=== PATIENT | male | born 1990 | race African-American/Black ===

== ENCOUNTER 2017-08-13 03:06 | Emergency (ER) | payer SELFPAY ==
[~2017-08-13] VITALS: Ht 190.5 cm; Wt 77.0 kg
[2017-08-13 03:10] VITALS: BP 134/77; PULSE 77; RESP 18; TEMP 98; O2SAT 97
[2017-08-13] MEDS ORDERED: AMOX500T PO (04:06)
[2017-08-13] MEDS ORDERED: DICL75TA PO (04:06)
--- NOTE | 2017-08-13 04:12 | PD ---
HPI Chief Complaint: Headache Time Seen by Provider: 03:58 Travel History International Travel<30 days: No Contact w/Intl Traveler<30days: No Traveled to known affect area: No History of Present Illness HPI 26-year-old black male presents [facility] with complaints of left-sided dental pain with headache. He states that he has taken [id number] ibuprofen and Aleve without relief. Pain is been moderate but can be severe at times. He denies any fever chills. He states the pain radiates from his left jaw up into his left ear and head. He denies any nausea vomiting. No abdominal pain or diarrhea. No dysuria or frequency. No alleviating factors. Exacerbated by the wind blowing on his mouth. PFSH Past Medical History Medical History: Denies Significant Hx Diminished Hearing: No Immunizations Current: Yes Tetanus Vaccination: < 5 Years Past Surgical History Surgical History: No Previous Surgery Social History Alcohol Use: Yes (OCCASSIONAL-LIQUOR 3X PER MONTH) Tobacco Use: Yes (1 PPD) Substance Use: Yes (SMOKES MARIJUANA DAILY) Allergies-Medications (Allergen,Severity, Reaction): Coded Allergies: No Known Allergies (Verified Adverse Reaction, Unknown, 08/13/17) Reported Meds & Prescriptions Reported Meds & Active Scripts Active Diclofenac Sodium DR (Diclofenac Sodium) 75 Mg Tabdr 75 Mg PO BID Amoxicillin 500 Mg Tab 500 Mg PO TID 10 Days Review of Systems Except as stated in HPI: all other systems reviewed are Neg General / Constitutional: No: Fever, Chills Eyes: No: Diploplia, Blurred Vision HENT: Positive: Sore Throat, Dental Difficulties, Earache, No: Headaches, Lightheadedness, Neck Stiffness, Neck Pain, Gingival Bleeding Cardiovascular: No: Chest Pain or Discomfort Respiratory: No: Cough Gastrointestinal: No: Nausea, Vomiting Genitourinary: No: Urgency, Frequency Musculoskeletal: No: Cramping, Pain Skin: No Rash, No Itching Physical Exam Narrative GENERAL: Well-developed, well-nourished in no acute distress. Nontoxic appearing. HEAD: Normocephalic, atraumatic. EYES: Pupils equal round and reactive. Extraocular motions intact. No scleral icterus. No injection or drainage. ENT: TMs clear without erythema. The external auditory canals clear. Nose: clear . Posterior pharynx is pink and moist. No tonsillar edema or exudate. Uvula midline. Airway patent. Patient has a large dental carry in his left lower mandible. NECK: Trachea midline.Supple, nontender, moves head freely. No central bony tenderness or spasm. CARDIOVASCULAR: Regular rate and rhythm without murmurs, gallops, or rubs. RESPIRATORY: Clear to auscultation. Breath sounds equal bilaterally. No wheezes , rales, or rhonchi. GASTROINTESTINAL: Abdomen soft, non-tender, nondistended. No hepato-splenomegaly , or palpable masses. No guarding. EXTREMITIES: No clubbing, cyanosis, or edema. No joint tenderness, effusion, or edema noted. BACK: Nontender without deformity or crepitance. No flank tenderness. Data Data Last Documented VS Vital Signs Date Time Temp Pulse Resp B/P (MAP) Pulse Ox O2 Delivery O2 Flow Rate FiO2 08/13/17 03:10 98.0 77 18 134/77 (96) 97 Room Air Orders Orders Amoxicillin (Trimox) (08/13/17 04:15) Acetamin-Hydrocod 325-5 Mg ([place] 5-325 (08/13/17 04:15) Ed Discharge Order (08/13/17 04:04) MDM Medical Decision Making Medical Screen Exam Complete: Yes Emergency Medical Condition: Yes Medical Record Reviewed: Yes Differential Diagnosis MDM: Moderate Differential diagnoses: Dental abscess, dental caries, osteitis, cellulitis Narrative Course Patient appears to have a dental abscess causing his headache. He is given amoxicillin 1 g by mouth and Lortab 5 a grams by mouth. Diagnosis Primary Impression: Dental abscess Additional Impression: Cephalgia Qualified Codes: R51 - Headache Patient Instructions: Narcotic given in the ED, General Instructions Additional Instructions: Rest. Saltwater gargles. [place] oil on cotton balls. Amoxicillin and diclofenac.. follow-up with a dentist as soon as possible. And return to the ER if any problems. Med/Other Pt SpecificInfo: Prescription(s) given Scripts Diclofenac Sodium DR (Diclofenac Sodium DR) 75 Mg Tabdr 75 MG PO BID, #20 TAB 0 Refills Prov: Char Knight DO 08/13/17 Amoxicillin (Amoxicillin) 500 Mg Tab 500 MG PO TID for Infection for 10 Days, TAB 0 Refills Prov: Char Knight DO 08/13/17 Disposition: 01 DISCHARGE HOME Diego Colvin Aug 13, 2017 04:11
[2017-08-13] MEDS ORDERED: ACETAMINOPHEN/HYDROcodone 325 MG/5 MG TAB PO ONE (04:15)
[2017-08-13] MEDS ORDERED: AMOXICILLIN (TRIHYDRATE) 500 MG CAP PO ONE (04:15)
== END 2017-08-13 04:30 | disposition home or self-care (01) ==
LOC: NEPD 03:06
DX: K04.7 Periapical abscess without sinus (principal); R51 Headache; F17.200 Nicotine dependence, unspecified, uncomplicated
CPT/HCPCS: 99284